=== PATIENT | female | born 1960 | race Caucasian/White ===

== ENCOUNTER 2021-12-05 05:51 | Day surgery (SDC) | payer BC ==
[2021-12-01 10:12] LABS: Absolute Lymphocytes (CBC) 2.3 K/uL (0.7-4.9); Hematocrit 42.6 % (36.0-45.0); Lymphocytes % 39.6 % (15.3-44.8); MPV 7.5 fL (7.6-11.3); RBC Red Blood Cell Count 4.62 M/uL (3.86-4.86)
[2021-12-01 10:23] LABS: Protime INR 0.93
[2021-12-01 10:28] LABS: Potassium 4.1 mmol/L (3.5-5.1)
[2021-12-05] MEDS ORDERED: CEFAZOLIN/NS 1gm 1 GM/50 ML BAG ONE (06:08)
[2021-12-05] MEDS ORDERED: Ringers Lactate 1,000 ML IV ONE ×2 (06:08→06:54)
[2021-12-05] MEDS ORDERED: MIDAZOLAM HCL 2 MG/2 ML INJ ONE ×2 (06:19→06:20)
[2021-12-05] MEDS ORDERED: FENTANYL CITR 100 MCG/2 ML ONE (06:19)
[2021-12-05] MEDS ORDERED: LIDOCAINE 1% MPF 5 ML VIAL ONE (06:19)
[2021-12-05] MEDS ORDERED: dexAMETHasone 10 MG/ML VIAL ONE ×2 (06:19→07:15)
[2021-12-05] MEDS ORDERED: ROPLVACAINE HCL 40 ML ONE (06:20)
[2021-12-05] MEDS ORDERED: EPINEPHRINE/PF 1 MG/ML AMP ONE (06:54)
[2021-12-05] MEDS ORDERED: propofoL 200 MG/20 ML VIAL IV ONE (07:15)
[2021-12-05] MEDS ORDERED: ROCURONIUM 50 MG/5 ML VIAL IV ONE (07:16)
[2021-12-05] MEDS ORDERED: ONDANSETRON 4 MG/2 ML VIAL ONE (07:16)
[2021-12-05] MEDS ORDERED: KETOROLAC 30 MG/ML INJ ONE (07:16)
[2021-12-05] MEDS ORDERED: LIDOCAINE 2% MPF 5 ML VIAL ONE (07:16)
[2021-12-05] MEDS ORDERED: GLYCOPYRROLATE 0.2 MG/ML SYR ONE (09:16)
[2021-12-05] MEDS ORDERED: NEOSTIGMINE 1 MG/ML -5 ML ONE (09:22)
--- NOTE | 2021-12-05 09:25 | P.BOP ---
Preoperative diagnosis: left shoulder roattor cuff tear, impingement syndrome Postoperative diagnosis: same, left shoulder SLAP tear Primary procedure: left shoulder arthroscopic rotator cuff repair Secondary procedure: left shoulder arthroscopic SLAP debridement Other procedure(s): left shoulder arthroscopic subacromial decompression Account Engineer: NONE,NONE Estimated blood loss: 5 cc Specimen: none Findings: see dictation Anesthesia: General Complications: None Implants: 1- 5.5 mm Arthrex corkscrew, 1- 4.75 mm Arthrex swivelock Fluids & blood products: per anesthesia record Transferred to: Recovery Room Condition: Good
--- NOTE | 2021-12-05 09:37 | P.OP ---
Preoperative diagnosis: left shoulder rotator cuff tear, impingement syndrome Postoperative diagnosis: same, left shoulder SLAP tear Primary procedure: left shoulder arthroscopic rotator cuff repair Secondary procedure: left shoulder arthroscopic SLAP debridement Other procedure(s): left shoulder arthroscopic subacromial decompression Anesthesia: general Estimated blood loss: 5 cc Specimen: none Findings: see dictation Operative Technique: Indication For Procedure: Keshia is a 61-year-old female who presented to my clinic with signs, symptoms, and MRI findings consistent with a left shoulder full-thickness rotator cuff tear. I discussed with the patient risks and benefits associated with operative and nonoperative treatment. She expressed understanding and elected to proceed with operative treatment. Description Of Procedure: After informed consent was obtained, the patient was identified in the preoperative holding area. The left upper extremity was marked. The patient then was brought to the PACU where she underwent a left- sided interscalene block performed by Anesthesia. The patient was brought back to the operating room, transferred to the operative table in supine fashion, placed under general endotracheal anesthesia. She was then placed in a beach chair position with his extremities well padded. The right upper extremity was then prepped and draped in usual sterile fashion. A time-out was initiated. The correct patient and procedure were performed and identified. The patient did receive preoperative prophylactic antibiotics. Via the posterior portal position, a spinal needle was introduced in the glenohumeral joint and the shoulder was injected with 30 cc of normal saline to distend the capsule. A stab incision was made posteriorly and a posterior portal was created. Arthroscope was brought in via the posterior portal position and diagnostic arthroscopy was performed. Under direct visualization, an anterior portal and cannula were created. The patient was noted to have a type 1 SLAP tear, which was debrided using the arthroscopic shaver. There were no significant instability of the superior labrum or anterior posterior labrum, which were stable to probe. There was no significant fraying or tenosynovitis of the bicipital tendon both intra-articular and extra-articular. Subscapularis was found to be stable and intact to probe. There were no loose bodies within the axillary pouch. The patient was noted to have a full-thickness tear of the anterior aspect of the supraspinatus. A lateral portal was created and an arthroscopic shaver was then used to debride the anterior aspect of the greater tuberosity. The rotator cuff tear was noted to create a bleeding bony bed. The undersurface of the rotator cuff tear was also debrided using the arthroscopic shaver to remove any unhealthy tissue. The arthroscope was then brought in the subacromial space. A subacromial bursectomy was performed using arthroscopic shaver. The patient was noted to have an anterior full-thickness tear. The rotator cuff tear was reducible to the greater tuberosity. A lateral stab incision was made just lateral to the acromion. A punch was then placed, was then used to place a 5.5 mm double loaded Arthrex corkscrew. Sutures were then passed through the rotator cuff tear in anterior-posterior fashion, tied in a horizontal mattress fashion. The suture lines were then crisscrossed and one lateral Arthrex SwiveLock anchor was placed to increase surface area of the reduction onto the greater tuberosity of the rotator cuff tendon. The remaining suture limbs were then cut. There was some significant fraying of a coracoacromial ligament as well as some undersurface spurring of the acromion and acromioplasty was performed using a radiofrequency ablator and an arthroscopic martinez. Arthroscopic instruments were then removed without complication. Wounds were then irrigated thoroughly with normal saline. Subcutaneous tissue was approximated using a 2-0 Vicryl. Portals were approximated using a 3-0 Monocryl. Sterile dressings were applied. Shoulder immobilizer was placed. The patient was awakened and transferred to PACU in stable condition. Postoperative Plan: The patient will be nonweightbearing in a shoulder immobilizer for 6 weeks. We will follow the medium rotator cuff repair protocol 4 weeks postoperatively. Complications: None Implants: 1- 5.5 mm arthrex corkscrew, 1- 4.75 mm arthrex swivelock Fluids & blood products: per anesthesia record Transferred to: Recovery Room Condition: Good
--- NOTE | 2021-12-05 10:10 | RAD REPORT ---
EXAM DESCRIPTION: RAD - Shoulder 1 View - 12/05/2021 10:01 am CLINICAL HISTORY: S/P RCR COMPARISON: Shoulder Left Wo Cont dated 10/09/2021 FINDINGS/IMPRESSION: Immediate postoperative changes at the left shoulder. No fractures identified. Alignment is normal on this single view.
[2021-12-05] MEDS ORDERED: HYDROCODONE/APAP 7.5/325 MG TAB ONE (11:03)
[2021-12-05 12:52] VITALS: BP 138/55; TEMP 96.4; O2SAT 97
== END 2021-12-05 11:54 | disposition home or self-care (01) ==
LOC: OR 05:51
PROVIDERS: ATTEND Orthopaedic Surgery Sports Medicine
PROC: 0RNK4ZZ Release Left Shoulder Joint, Percutaneous Endoscopic Approach (ICD-10-PCS; 2021-12-05)
PROC: 0RBK4ZZ Excision of Left Shoulder Joint, Percutaneous Endoscopic Approach (ICD-10-PCS; 2021-12-05)
PROC: 0LQ24ZZ Repair Left Shoulder Tendon, Percutaneous Endoscopic Approach (ICD-10-PCS; principal; 2021-12-05 07:30)
DX: M75.102 Unspecified rotator cuff tear or rupture of left shoulder, not specified as traumatic (principal); M25.512 Pain in left shoulder; M75.22 Bicipital tendinitis, left shoulder; M75.42 Impingement syndrome of left shoulder; Z20.822 Contact with and (suspected) exposure to COVID-19
CPT/HCPCS: 85025; 80048; 36415; 85610; 85730; 73020; 29827; 29826; 29822; U0002; J2704; J0171; J2250 ×2; J3010; J1100 ×2; J2795; J2710; J0690; J7120 ×2; J2405

== ENCOUNTER 2022-04-05 00:52 | Inpatient (IN) | payer BC ==
--- OUTSIDE RECORDS SUMMARY | 2022-04-05 00:54 | XMS REPORT | Continuity of Care Document ---
:1960 Author Organization [facility] t Address [address] [place] [address] Care Team Providers Name Role Phone [place] Attending Clinician Unavailable Millender Attending Clinician Unavailable SISSON_C Attending Clinician Unavailable Kendy Attending Clinician [phone] G_Pappas Attending Clinician Unavailable SISSON_C Admitting Clinician Unavailable G_Pappas Admitting Clinician Unavailable Payers Payer Name Policy Type Policy Number Effective Date Expiration Date Alea elise [facility]: LAZARO [id number] 2017 2018 ADVANTAGE (O) 00:00:00 00:00:00 Problems This patient has no known problems. Allergies, Adverse Reactions, Alerts This patient has no known allergies or adverse reactions. Medications Ordered Filled Start Stop Current Ordering Indication Dosage Frequency Signature Comments Components Source Medication Medication Date Date Medication? Clinician (SIG) Name Name Trazodone Trazodone 2018- Yes Bambi 1-2 Co mmon HCl HCl 4-25 Millender tablets as Spir it 00:00: needed for - [facility] [address] bedtime as [facility] Estradiol Estradiol Yes Bambi 1 tablet Common Millender Spirit - [facility] Sleep Aid Sleep Aid Yes Bambi 1 tablet Common Millender at bedtime Spir it as needed - [facility] Vitamin B12 Vitamin B12 Yes Bambi 5 tablets Common Millender Spirit [facility] Melatonin Melatonin Yes Bambi 3 tablets Common Millender at bedtime Spir it as needed - [facility] with food [facility] Emergen-ZZZ Emergen-ZZZ Yes Bambi not Common Millender defined Spirit [facility] Alive Alive Yes Bambi not Common Womens Womens Millender defined Spi rit Gummy Gummy [facility] Co Q-10 Co Q-10 Yes Bambi 1 capsule Com mon Millender with a Spirit meal [facility] Talent 3 Talent 3 Yes Bambi 1 capsule Com mon Millender Spirit [facility] Vitamin C Vitamin C Yes Bambi 1 capsule Common Millender Spirit [facility] Uyen Uyen Yes Bambi (w/Tumeric Comm on Millender 50 mg) 1 Spirit capsule - [facility] Super Super Yes Bambi 1 tablet Common [facility]-Complex [facility] Probiotic Probiotic Yes Bambi (20 Comm on Millender billion Spirit units) 1 - [facility] capsule [facility] Herbal Herbal Yes Bambi (Vitel Common Millender Herbs) 1 [facility] tablet [facility] Magnesium Magnesium Yes Bambi 1 capsule Common Citrate Citrate Millender Spir it - [facility] Vitamin D Vitamin D Yes Bambi (D-3/OTC) Common Millender [address] [facility] Biotin Biotin Yes Bambi 1 capsule [address] n Millender [facility] Procedures This patient has no known procedures. Encounters Start End Encounter Admission Attending Care Care Encounter Source Date/Time Date/Time Type Type Clinicians Facility Department ID 2022-01-01 Outpatient Renetta [facility] [id number] Common 14:04:[address] [facility] 2021-12-17 Outpatient Renetta [facility] [id number] Common 14:31:16 Leslee [facility] 2021-12-17 Outpatient Renetta [facility] [id number] Common 14:21:[address] [facility] 2021-12-17 Outpatient Renetta [facility] [id number] Common 14:18:[address] [facility] 2021-12-17 Outpatient Renetta [facility] [id number] Common 14:05:[id number] [facility] 2021-12-17 Outpatient [place], STLMLC STL[facility] [id number] Common 13:17:[address] [facility] 2021-12-17 Outpatient [place], STLMLC STLMLC [id number] Common 13:01:[address] [facility] 2021-12-17 Outpatient [place], STLMLC STLMLC [id number] Common 12:59:[address] [facility] 2021-12-17 Outpatient [place], STLMLC STLMLC [id number] Common 12:50:[address] [facility] 2021-12-17 Outpatient [place], STLMLC STLMLC [id number] Common 12:07:[address] [facility] 2021-12-17 Outpatient STLMLC STL[facility]C [id number] Common 12:03:[id number] [facility] 2021-12-17 Outpatient Millender, STLMLC STLMLC [id number] Common 11:13:[id number] [facility] 2022-03-31 2022-03-31 Outpatient SISSON_C [facility] [id number] [place] 03:35:00 03:35:00 [id number] 2022-03-31 2022-03-31 Outpatient Kendy [facility] [id number] 00:00:00 00:00:00 Jackie [id number] 2022-03-25 2022-03-25 Outpatient S[facility]SON[facility]C [facility] [id number] [place] 12:53:00 12:53:00 [id number] [facility] 2022-03-24 2022-03-24 ambulatory [facility]MLC ST[facility] [id number] Common 00:00:00 00:00:00 [facility] 2022-03-05 2022-03-05 ambulatory [facility]LMLC ST[facility] [id number] Common 00:00:00 00:00:00 [facility] 2022-03-05 2022-03-05 ambulatory [facility]LMLC ST[facility]C [id number] Common 00:00:00 00:00:00 [facility] 2022-02-16 2022-02-16 ambulatory STLMLC ST[facility] [id number] Common 00:00:00 00:00:00 [facility] 2022-01-22 2022-01-22 ambulatory [facility]MLC ST[facility] [id number] Common 00:00:00 00:00:00 [facility] 2021-12-30 2021-12-30 ambulatory [facility]LMLC ST[facility] [id number] Common 00:00:00 00:00:00 [facility] 2021-12-25 2021-12-25 ambulatory STLMLC STLMLC [id number] Common 00:00:00 00:00:00 [facility] 2021-12-09 2021-12-09 ambulatory [facility]LMLC ST[facility]C [id number] Common 00:00:00 00:00:00 [facility] 2021-12-02 2021-12-02 ambulatory [facility]LMLC ST[facility]C [id number] Common 00:00:00 00:00:00 [facility] 2021-11-28 2021-11-28 ambulatory STLMLC STLMLC [id number] Common 00:00:00 00:00:00 [facility] 2021-11-26 2021-11-26 ambulatory [facility]LMLC STLMLC [id number] Common 00:00:00 00:00:00 [facility] 2021-11-25 2021-11-25 ambulatory STLMLC STLMLC [id number] Common 00:00:00 00:00:00 [facility] 2021-10-22 2021-10-22 ambulatory STLMLC STLMLC [id number] Common 00:00:00 00:00:00 [facility] 2021-10-21 2021-10-21 ambulatory STLMLC STLMLC [id number] Common 00:00:00 00:00:00 [facility] 2021-10-21 2021-10-21 ambulatory STLMLC STLMLC [id number] Common 00:00:00 00:00:00 [facility] 2021-10-15 2021-10-15 ambulatory STLMLC STLMLC [id number] Common 00:00:00 00:00:00 [facility] 2021-10-15 2021-10-15 ambulatory STLMLC STL[facility]C [id number] Common 00:00:00 00:00:00 [facility] 2021-10-13 2021-10-13 ambulatory STLMLC STLMLC [id number] Common 00:00:00 00:00:00 [facility] 2021-10-08 2021-10-08 ambulatory STLMLC STLMLC [id number] Common 00:00:00 00:00:00 [facility] 2021-10-02 2021-10-02 ambulatory STLMLC STLMLC [id number] Common 00:00:00 00:00:00 [facility] 2021-09-25 2021-09-25 ambulatory STLMLC STLMLC [id number] Common 00:00:00 00:00:00 [facility] 2021-09-25 2021-09-25 ambulatory [facility]LMLC STL[facility]C [id number] Common 00:00:00 00:00:00 [facility] 2021-09-24 2021-09-24 ambulatory STLMLC STLMLC [id number] Common 00:00:00 00:00:00 [facility] 2021-08-07 2021-08-07 Outpatient [facility]C ST[facility]C [id number] Common 00:00:00 00:00:00 [facility] 2021-08-05 2021-08-05 Outpatient [facility] ST[facility] [id number] Common 00:00:00 00:00:00 [facility] 2021-07-18 2021-07-18 Outpatient [facility] ST[facility] [id number] Common 00:00:00 00:00:00 [facility] 2021-05-13 2021-05-13 Outpatient [facility] ST[facility] [id number] Common 00:00:00 00:00:00 [facility] 2021-05-08 2021-05-08 Outpatient [facility]C ST[facility] [id number] Common 00:00:00 00:00:00 [facility] 2021-03-31 2021-03-31 Outpatient [facility]C ST[facility] [id number] Common 00:00:00 00:00:00 [facility] 2021-03-13 2021-03-13 Outpatient [facility]C ST[facility]C [id number] Common 00:00:00 00:00:00 [facility] 2021-03-03 2021-03-03 Outpatient [facility] [id number] Common 00:00:00 00:00:00 [facility] 2021-02-28 2021-02-28 Outpatient [facility]C ST[facility]C [id number] Common 00:00:00 00:00:00 [facility] 2021-02-27 2021-02-27 Outpatient ST[facility]C ST[facility]C [id number] Common 00:00:00 00:00:00 [facility] 2021-02-20 2021-02-20 Outpatient STLMLC ST[facility]C [id number] Common 00:00:00 00:00:00 [facility] 2021-02-13 2021-02-13 Outpatient [facility]C ST[facility]C [id number] Common 00:00:00 00:00:00 [facility] 2021-01-02 2021-01-02 Outpatient [facility]C ST[facility]C [id number] Common 00:00:00 00:00:00 [facility] 2021-01-01 2021-01-01 Outpatient [facility]C ST[facility]C [id number] Common 00:00:00 00:00:00 [facility] 2020-12-19 2020-12-19 Outpatient ST[facility]MLC ST[facility]C [id number] Common 00:00:00 00:00:00 [facility] 2020-11-28 2020-11-28 Outpatient ST[facility]MLC STLMLC [id number] Common 00:00:00 00:00:00 [facility] 2020-10-28 2020-10-28 Outpatient [facility]C ST[facility]C [id number] Common 00:00:00 00:00:00 [facility] 2020-10-15 2020-10-15 Outpatient [facility]C ST[facility]C [id number] Common 00:00:00 00:00:00 [facility] 2020-10-09 2020-10-09 Outpatient G_Pappas [facility] [id number] [place] 02:44:00 02:44:00 [id number] 2020-08-20 2020-08-20 Outpatient STLMLC STLMLC [id number] Common 00:00:00 00:00:00 [facility] 2020-08-15 2020-08-15 Outpatient ST[facility]MLC ST[facility]C [id number] Common 00:00:00 00:00:00 [facility] 2020-03-08 2020-03-08 [facility] [id number] Common 08:00:00 08:00:00 [facility] 2019-09-07 2019-09-07 [facility] [id number] Common 08:00:00 08:00:00 [facility] 2019-03-12 2019-03-12 [facility] [id number] Common 13:07:00 13:07:00 [facility] 2018-07-11 2018-07-11 [facility] [id number] Common 08:25:00 08:25:00 [facility] Results This patient has no known results.
[2022-04-05] MEDS ORDERED: MORPHINE 4 MG/ML SYR ONE ×2 (03:09→05:20)
[2022-04-05] MEDS ORDERED: ONDANSETRON 4 MG/2 ML VIAL ONE ×3 (03:49→08:50)
[2022-04-05 03:50] LABS: Absolute Lymphocytes (CBC) 1.3 K/uL (0.7-4.9)
[2022-04-05 03:56] LABS: Hematocrit 42.5 % (36.0-45.0); MPV 7.3 fL (7.6-11.3); RBC Red Blood Cell Count 4.81 M/uL (3.86-4.86)
[2022-04-05 04:07] LABS: Albumin 3.4 g/dL (3.4-5.0); Bilirubin Total 0.7 mg/dL (0.2-1.0); Potassium 3.7 mmol/L (3.5-5.1); Protein, Total 7.6 g/dL (6.4-8.2)
[2022-04-05 04:27] LABS: Blood Morphology Comment NOT SEEN (NOT SEEN); Platelet Estimate ADEQ
[2022-04-05] MEDS ORDERED: PIPERACIL/TAZO 3.375 GM VIAL IV ONE (04:45)
[2022-04-05] MEDS ORDERED: NA CHLORIDE 0.9% 100 ML IV ONE (04:45)
[2022-04-05 05:05] LABS: Protime INR 1.52
--- NOTE | 2022-04-05 06:38 | ER ---
Nurse's Notes [facility] Name: Keshia Mendoza Age: 61 yrs Sex: Female : 1960 Arrival Date: 04/05/2022 Time: 00:54 Bed 5 Private MD: Diagnosis: Small bowel obstruction;Perforated abdominal viscus;pneumoperitoneum Presentation: 04/05 01:21 Chief complaint: Patient states: Been having abdominal pain for the past 24 hours. tw5 Spouse and/or significant other states: "We just thought it was gas so I have been giving her gas x all day.". Coronavirus screen: Vaccine status: Patient reports being unvaccinated. Ebola Screen: Patient negative for fever greater than or equal to 101.5 degrees Fahrenheit, and additional compatible Ebola Virus Disease symptoms Patient denies exposure to infectious person. Patient denies travel to an Ebola-affected area in the 21 days before illness onset. Initial Sepsis Screen: Does the patient meet any 2 criteria? HR > 90 bpm. Does the patient have a suspected source of infection? Yes: Acute abdominal pain. Risk Assessment: Do you want to hurt yourself or someone else? Patient reports no desire to harm self or others. Onset of symptoms was April 03, 2022 at 22:00. 01:21 Method Of Arrival: Wheelchair tw5 01:21 Acuity: LORENZA 3 tw5 Triage Assessment: 01:26 General: Appears uncomfortable, Behavior is calm, cooperative, appropriate for age. tw5 Pain: Complains of pain in abdomen Pain currently is 10 out of 10 on a pain scale. GI: Reports nausea, vomiting. Historical: - Allergies: 07:37 No Known Allergies; jl7 - Home Meds: 07:37 None [Active]; jl7 - PMHx: 07:37 None; jl7 - PSHx: 01:26 Appendectomy; rotator cuff surgery- left and right; Total abdominal hysterectomy; tw5 - Immunization history:: Flu vaccine is not up to date. - Social history:: Smoking status: Patient/guardian denies using tobacco, the patient reports quitting approximately 3 years ago. Screenin:27 Abuse screen: Denies threats or abuse. Nutritional screening: No deficits noted. ll3 Tuberculosis screening: No symptoms or risk factors identified. Fall Risk No fall in past 12 months (0 pts). No secondary diagnosis (0 pts). IV access (20 points). Ambulatory Aid- None/Bed Rest/Nurse Assist (0 pts). Gait- Normal/Bed Rest/Wheelchair (0 pts) Mental Status- Oriented to own ability (0 pts). Total Islas Fall Scale indicates No Risk (0-24 pts). Assessment: 04:02 Reassessment: No changes from previously documented assessment. Patient and/or family ll3 updated on plan of care and expected duration. Pain level reassessed. Patient is alert, oriented x 3, equal unlabored respirations, skin warm/dry/pink. 05:27 Reassessment: No changes from previously documented assessment. Patient and/or family ll3 updated on plan of care and expected duration. Pain level reassessed. Patient is alert, oriented x 3, equal unlabored respirations, skin warm/dry/pink. 07:15 Reassessment: Patient appears in no apparent distress at this time. No changes from jl7 previously documented assessment. Patient and/or family updated on plan of care and expected duration. Pain level reassessed. Patient is alert, oriented x 3, equal unlabored respirations, skin warm/dry/pink. Awaiting surgery. Vital Signs: 01:21 BP 117 / 81; Pulse 137; Resp 18; Temp 98.1; Pulse Ox 97% on R/A; Weight 68.04 kg; tw5 Height 5 ft. 5 in. (165.10 cm); Pain 10/10; 04:02 BP 147 / 100; Pulse 126; Resp 18; Pulse Ox 95% on R/A; ll3 05:26 BP 130 / 78; Pulse 119; Resp 18; Pulse Ox 96% on R/A; ll3 06:55 BP 126 / 93; Pulse 122; Resp 18; Pulse Ox 98% on R/A; ll3 07:38 BP 115 / 77; Pulse 120; Resp 15; Pulse Ox 98% ; jl7 01:21 Body Mass Index 24.96 (68.04 kg, 165.10 cm) tw5 ED Course: 00:54 Patient arrived in ED. bp1 01:05 Jack Quintero DO is Attending Physician. ms3 01:23 Triage completed. tw5 01:26 Arm band placed on right wrist. tw5 03:41 Duke Dixon, RN is Primary Nurse. jb4 04:00 Notified ED physician of a critical lab result(s). WBC 26.2. ll3 04:00 Inserted saline lock: 22 gauge in left forearm, using aseptic technique. Blood ll3 collected. 05:03 CT Abd/Pelvis - IV Contrast Only In Process Unspecified. EDMS 05:27 Patient has correct armband on for positive identification. Placed in gown. Bed in low ll3 position. Call light in reach. Side rails up X 1. 06:36 Francisco Hsieh MD is Hospitalizing Provider. ms3 07:37 No provider procedures requiring assistance completed. Patient admitted, IV remains in jl7 place. intact, No redness/swelling at site. Administered Medications: 03:40 Drug: morphine 4 mg Route: IVP; Site: left forearm; ll3 04:27 Follow up: Response: No adverse reaction ll3 03:48 Drug: Zofran (Ondansetron) 4 mg Route: IVP; Site: left forearm; ll3 04:27 Follow up: Response: No adverse reaction ll3 05:15 Drug: Zosyn (piperacillin-tazobactam) 3.375 grams Route: IVPB; Infused Over: 60 mins; ll3 Site: left forearm; 06:40 Follow up: Response: No adverse reaction; IV Status: Completed infusion; IV Intake: ll3 100ml 05:20 Drug: Ondansetron 4 mg Route: IVP; Site: left forearm; ll3 06:41 Follow up: Response: No adverse reaction ll3 05:25 Drug: morphine 4 mg Route: IVP; Site: left forearm; ll3 06:41 Follow up: Response: No adverse reaction ll3 07:36 Drug: Lactated Ringers Solution 1000 ml Route: IV; Rate: 150 ml/hr; Site: left jl7 antecubital; 07:40 Follow up: IV Status: Infusion continued upon admission jl7 Medication: 07:37 VIS not applicable for this client. jl7 Intake: 06:40 IV: 100ml; Total: 100ml. ll3 Outcome: 06:37 Decision to Hospitalize by Provider. ms3 07:41 Admitted to OR accompanied by nurse, family with patient, via stretcher. jl7 07:41 Condition: stable 07:41 Discharge instructions given to patient, family, Instructed on the need for admit, Demonstrated understanding of instructions. 07:47 Patient left the ED. jl7 Signatures: Dispatcher [employer] EDDuke Navarro, RN RN jb4 Davida Mcintyre RN RN jl7 Jack Quintero DO DO ms3 Nichole Peck Tiffany tw5 Allen Mathis RN RN ll3
--- NOTE | 2022-04-05 06:38 | EDPHYS ---
Physician Documentation [facility] Name: Keshia Menodza Age: 61 yrs Sex: Female : 1960 Arrival Date: 04/05/2022 Time: 00:54 Bed 5 Private MD: ED Physician Jack Quintero HPI: 04/05 01:33 This 61 yrs old Female presents to ER via Wheelchair with complaints of Abdominal Pain, ms3 Nausea/Vomiting. 01:33 The patient presents to the emergency department with nausea, that is moderate, ms3 vomiting, abdominal pain, of the abdomen, described as crampy, Pressure. Onset: The symptoms/episode began/occurred acutely, 2 day(s) ago. Possible causes: unknown. The symptoms are aggravated by Coughing, sneezing The symptoms are alleviated by nothing. Associated signs and symptoms: Pertinent positives: abdominal pain, nausea, vomiting. Severity of symptoms: At their worst the symptoms were severe in the emergency department the symptoms are unchanged Pain is currently a 10 / 10. Historical: - Allergies: 07:37 No Known Allergies; jl7 - Home Meds: 07:37 None [Active]; jl7 - PMHx: 07:37 None; jl7 - PSHx: 01:26 Appendectomy; rotator cuff surgery- left and right; Total abdominal hysterectomy; tw5 - Immunization history:: Flu vaccine is not up to date. - Social history:: Smoking status: Patient/guardian denies using tobacco, the patient reports quitting approximately 3 years ago. ROS: 01:33 Constitutional: Negative for fever, and chills. Eyes: Negative for injury, pain, ms3 redness, and discharge, Neck: Negative for injury, pain, and swelling, Cardiovascular: Negative for chest pain, and palpitations. Respiratory: Negative for shortness of breath, cough, wheezing, and pleuritic chest pain, MS/Extremity: Negative for injury and deformity, Skin: Negative for injury, rash, and discoloration. 01:33 Abdomen/GI: Positive for abdominal pain, nausea and vomiting. 01:33 All other systems are negative. Exam: 01:33 Constitutional: This is a well developed, well nourished patient who is awake, alert, ms3 and in no acute distress. Head/Face: Normocephalic, atraumatic. Neck: Trachea midline, no cervical lymphadenopathy. Supple, full range of motion without nuchal rigidity, or vertebral point tenderness. No Meningismus. Chest/axilla: Normal chest wall appearance and motion. Nontender with no deformity. Cardiovascular: Regular rate and rhythm with a normal S1 and S2. No gallops, murmurs, or rubs. Normal PMI, no JVD. No pulse deficits. Skin: Warm, dry with normal turgor. Normal color with no rashes, no lesions, and no evidence of cellulitis. 01:33 Abdomen/GI: Inspection: abdomen appears normal, Bowel sounds: diminished, in all quadrants, Palpation: moderate abdominal tenderness, in all quadrants. 04:35 ECG was reviewed by the Attending Physician. ms3 Vital Signs: 01:21 BP 117 / 81; Pulse 137; Resp 18; Temp 98.1; Pulse Ox 97% on R/A; Weight 68.04 kg; tw5 Height 5 ft. 5 in. (165.10 cm); Pain 10/10; 04:02 BP 147 / 100; Pulse 126; Resp 18; Pulse Ox 95% on R/A; ll3 05:26 BP 130 / 78; Pulse 119; Resp 18; Pulse Ox 96% on R/A; ll3 06:55 BP 126 / 93; Pulse 122; Resp 18; Pulse Ox 98% on R/A; ll3 07:38 BP 115 / 77; Pulse 120; Resp 15; Pulse Ox 98% ; jl7 01:21 Body Mass Index 24.96 (68.04 kg, 165.10 cm) tw5 MDM: 01:33 Differential diagnosis: Nonspecific abd pain, gastritis, appendicitis, diverticulitis, ms3 viral gastroenteritis. 01:38 Patient medically screened. ms3 06:36 ED course: Discussed case with Dr Davila. He would like the OR team ready in 1 hour ms3 for laparotomy. [facility] shipping supervisor[facility] Discussed case with Dr Hsieh and he accepts patient. All question answered. Discussed OR plan with patient and her and they understand/ agree with plan.. 06:36 Data reviewed: vital signs, nurses notes, lab test result(s), radiologic studies, CT ms3 scan. Counseling: I had a detailed discussion with the patient and/or guardian regarding: the historical points, exam findings, and any diagnostic results supporting the discharge/admit diagnosis, lab results, radiology results, the need for further work-up and treatment in the hospital. 04/05 02:57 Order name: CBC with Diff; Complete Time: 06:29 ms3 04/05 02:57 Order name: CMP; Complete Time: 06:29 ms3 04/05 02:57 Order name: Lipase; Complete Time: 06:29 ms3 04/05 04:02 Order name: Manual Differential; Complete Time: 06:29 EDMS 04/05 04:14 Order name: Blood Culture Adult (2) ms3 04/05 04:14 Order name: Lactate; Complete Time: 06:29 ms3 04/05 02:57 Order name: CT Abd/Pelvis - IV Contrast Only ms3 04/05 04:14 Order name: Protime (+inr); Complete Time: 06:29 ms3 04/05 04:14 Order name: Ptt, Activated; Complete Time: 06:29 ms3 04/05 04:14 Order name: Urine Microscopic Only 3 04/05 06:55 Order name: COVID-19 SARS RT PCR (Document "Date of Onset" if Symptomatic) ll3 04/05 02:57 Order name: IV Saline Lock; Complete Time: 03:49 ms3 04/05 02:57 Order name: Labs collected and sent; Complete Time: 03:49 ms3 04/05 04:14 Order name: Accucheck; Complete Time: 04:43 ms3 04/05 04:14 Order name: Cardiac monitoring; Complete Time: 04:42 ms3 04/05 04:14 Order name: EKG - Nurse/Tech; Complete Time: 04:42 ms3 04/05 04:14 Order name: IV Saline Lock - Large Bore; Complete Time: 04:27 ms3 04/05 04:14 Order name: O2 Per Protocol; Complete Time: 04:27 ms3 04/05 04:14 Order name: O2 Sat Monitoring; Complete Time: 04:27 ms3 EC:35 Rate is 125 beats/min. Rhythm is regular. QRS Babbitt is Normal. OH interval is normal. ms3 QRS interval is normal. Clinical impression: Sinus tachycardia. Interpreted by me. Administered Medications: 03:40 Drug: morphine 4 mg Route: IVP; Site: left forearm; ll3 04:27 Follow up: Response: No adverse reaction ll3 03:48 Drug: Zofran (Ondansetron) 4 mg Route: IVP; Site: left forearm; ll3 04:27 Follow up: Response: No adverse reaction ll3 05:15 Drug: Zosyn (piperacillin-tazobactam) 3.375 grams Route: IVPB; Infused Over: 60 mins; ll3 Site: left forearm; 06:40 Follow up: Response: No adverse reaction; IV Status: Completed infusion; IV Intake: ll3 100ml 05:20 Drug: Ondansetron 4 mg Route: IVP; Site: left forearm; ll3 06:41 Follow up: Response: No adverse reaction ll3 05:25 Drug: morphine 4 mg Route: IVP; Site: left forearm; ll3 06:41 Follow up: Response: No adverse reaction ll3 07:36 Drug: Lactated Ringers Solution 1000 ml Route: IV; Rate: 150 ml/hr; Site: left jl7 antecubital; 07:40 Follow up: IV Status: Infusion continued upon admission jl7 Disposition Summary: 04/05/22 06:37 Hospitalization Ordered Hospitalization Status: Inpatient Admission ms3 Provider: Francisco Hsieh ms3 Location: Telemetry/[facility] (Inpatient) ms3 Condition: Stable ms3 Problem: new ms3 Symptoms: are unchanged ms3 Bed/Room Type: Standard ms3 Room Assignment: ms3 Diagnosis - Small bowel obstruction ms3 - Perforated abdominal viscus ms3 - pneumoperitoneum ms3 Forms: - Medication Reconciliation Form ms3 - SBAR form ms3 Signatures: Dispatcher [employer] EDYuri Rivera, SHUKRI-Peggy EASLEYP-Cla1 Duke Dixon, RN RN jb4 Davida Mcintyre RN RN jl7 Jack Quintero DO DO ms3 Rosa Noriega tw5 Allen Mathis RN RN ll3
[2022-04-05] MEDS ORDERED: Ringers Lactate 1,000 ML IV ONE ×5 (07:02→10:20)
[2022-04-05] MEDS ORDERED: LIDOCAINE 1% MPF 5 ML VIAL ONE (07:37)
[2022-04-05] MEDS ORDERED: propofoL 200 MG/20 ML VIAL IV ONE (07:37)
[2022-04-05] MEDS ORDERED: ROCURONIUM 50 MG/5 ML VIAL IV ONE (07:38)
[2022-04-05] MEDS ORDERED: FENTANYL CITR 100 MCG/2 ML ONE ×2 (07:38→09:05)
[2022-04-05] MEDS ORDERED: SUCCINYLCHOLINE 20 MG/ML (10 ML) IV ONE (07:50)
[2022-04-05] MEDS ORDERED: ACETAMINOPHEN 500 MG TAB PO PRN (07:54)
[2022-04-05] MEDS ORDERED: ONDANSETRON 4 MG/2 ML VIAL IV PRN (07:54)
--- NOTE | 2022-04-05 07:59 | P.HP ---
Certification for Inpatient Patient admitted to: Inpatient With expected LOS: >2 Midnights Practitioner: I am a practitioner with admitting privileges, knowledge of patient current condition, hospital course, and medical plan of care. Services: Services provided to patient in accordance with Admission requirements found in Title 42 Section 412.3 of the Code of Federal Regulations Patient History Date of Service: 04/05/22 Reason for admission: Rated intra-abdominal viscus, sepsis, intra-abdominal catastrophe. History of Present Illness: 61-year-old female patient was evaluated in the emergency room for episode of abdominal pain. She complains of pain for the past 2-day duration with associated nausea and vomiting. Pain is aggravated with coughing and movement and in the ED she had a CT abdomen pelvis done that revealed free air in the abdomen depicting perforated viscus. She was taken urgently to the OR for surgical intervention she was found to have a perforated sigmoid diverticulitis. She had operative intervention and colostomy formation. She is presently in the ICU for postoperative care. Allergies No Known Allergies Allergy (Verified 12/01/21 09:31) Home Medications: Ascorbic Acid [Vitamin C] 2,000 mg PO DAILY 12/01/21 Ascorbic Acid/Elderberry Fruit [Elderberry-Vit C 50-100 mg Chw] 1 each PO DAILY 12/01/21 Biotin 10,000 mcg PO DAILY 12/01/21 Cholecalciferol (Vitamin D3) [Vitamin D3] 3,000 unit PO DAILY 12/01/21 L.acidoph,Paracasei, B.lactis [Probiotic] 1 each PO DAILY 12/01/21 Lifitegrast [Xiidra] 1 each OP DAILY 12/01/21 Magnesium Oxide [Magnesium] 250 mg PO DAILY 12/01/21 Mastic-3S/Dha/Epa/Fish Oil/D3 [De3 Dry Eye Mastic Benefits Cap] 1 each PO BID 12/01/21 Trazodone HCl 100 mg PO BEDTIME 12/01/21 Turmeric Root/Uyen Root Ext [Turmeric Curcumin-Uyen Gummy] 1 each PO DAILY 12/01/21 Zinc 50 mg PO DAILY 12/01/21 Review of Systems General: Weakness, Malaise Eyes: Unremarkable ENT: Unremarkable Respiratory: Unremarkable Cardiovascular: Unremarkable Gastrointestinal: Nausea, Vomiting, Abdominal Pain Genitourinary: Unremarkable Musculoskeletal: Unremarkable Integumentary: Unremarkable Neurological: Unremarkable Physical Examination - Vital Signs Temperature: 98.1 F Blood Pressure: 130/78 Pulse: 119 Respirations: 18 - Physical Exam General: Alert HEENT: Atraumatic, Normocephalic Neck: Supple Respiratory: Normal air movement Cardiovascular: Regular rate/rhythm, Normal S1 S2 Gastrointestinal: Other (post op changes noted.), Distended Musculoskeletal: No swelling Neurological: Normal speech - Studies Laboratory Data (last 24 hrs) 04/05/22 04:26: PT 16.9 H, INR 1.52, APTT 37.5 H 04/05/22 03:42: Sodium 131 L, Potassium 3.7, BUN 13, Creatinine 0.80, Glucose 117 H, Total Bilirubin 0.7, AST 29, ALT 72, Alkaline Phosphatase 122 H, Lipase 85 04/05/22 03:42: WBC 26.2 H*, Hgb 14.7, Hct 42.5, Plt Count 266 Microbiology Data (last 24 hrs): 04/05/22 04:32 Blood - Blood Anaerobic Blood Culture - Final Assessment and Plan - Plan Perforated sigmoid diverticulitis: Patient had operative intervention urgently after she was discovered to have intra-abdominal catastrophe. She is presently on clear liquid diet as per surgeon recommendation. Will continue colostomy care as per ostomy wound nurse. Will continue pain control with as needed morphine. Follow closely Empiric antibiotic with Zosyn to be continued. Prophylaxis: Lovenox and SCDs for DVT prophylaxis CODE STATUS: Full code Disposition: For possible discharge in the next 48-72. - Advance Directives Does patient have a Living Will: No Does patient have a Durable POA for Healthcare: No
[2022-04-05] MEDS ORDERED: D5.45NS W/KCL 20MEQ 1,000 ML IV SCH (08:00)
[2022-04-05 08:12] LABS: Urine Appearance Clear (Clear); Urine Bilirubin Negative (Negative); Urine Blood Trace-intact (Negative); Urine Color Yellow (Yellow); Urine Glucose Negative (Negative); Urine Protein Negative (Negative); Urine Urobilinogen 0.2 mg/dL (0.2-1.0)
[2022-04-05 08:13] LABS: Urine Microscopic Reflex ORDER UMIC; Urine RBC <5 /HPF (NONE SEEN)
[2022-04-05 08:14] LABS: Urine Bacteria <20 /HPF (<20)
[2022-04-05] MEDS ORDERED: dexAMETHasone 10 MG/ML VIAL ONE (08:49)
[2022-04-05] MEDS ORDERED: KETOROLAC 30 MG/ML INJ ONE (08:50)
[2022-04-05] MEDS: ENOXAPARIN 40 MG/0.4 ML SQ SCH (09:00)
[2022-04-05] MEDS ORDERED: LABETALOL HCL 100 MG/20 ML ONE (09:14)
[2022-04-05] MEDS ORDERED: GLYCOPYRROLATE 0.2 MG/ML SYR ONE (09:35)
[2022-04-05] MEDS ORDERED: SODIUM CHLORIDE 0.9% 10ML INJ IV PRN (10:02)
[2022-04-05] MEDS: D5.45NS W/KCL 20MEQ 1,000 ML IV SCH ×3 (10:07→21:59)
--- NOTE | 2022-04-05 10:18 | P.BOP ---
Preoperative diagnosis: Acute abd pain, peritonitis, pneumoperitoneum, perforated viscus, SBO Postoperative diagnosis: same, perforated sigmoid diverticulitis Primary procedure: 1. Emergent exploratory laparotomy, 2.sigmoid resection, Secondary procedure: 3. colostomy creation Historic Preservationist: Mamta Pierre (Sarahi) Estimated blood loss: <50cc Specimen: sigmoid Findings: perforated sigmoid diverticulitis Anesthesia: General Complications: None Drain(s): Nasogastric, Urinary catheter, SOWMYA drain Transferred to: Recovery Room Condition: Good
--- NOTE | 2022-04-05 12:17 | CON ---
Date of Consultation: 04/05/2022 Diagnosis: Pneumoperitoneum, peritonitis. History Of Present Illness: This is the case of a 61-year-old patient, that is dark 2 days ago, Fri ay night, complaining of stomach indigestion. During the Wednesday, the patient was taking anti-gas m edications, thinking that it was the problem, but this morning she could not take it anymore and she shows in the ER and found to have pneumoperitoneum. She stated that Wednesday she ate some steak with h er and he ate the same food and he is doing good. There is a history of colonoscopy less yin n 10 years ago, which she claimed was negative. There is no dysuria, hematuria, hematochezia, melena . There is no recent traveling out of the country. There is no family member sick at home and there is no previous episode of this. The patient stated nausea and vomiting with it. Review of Systems: See H and P. Ten points otherwise unremarkable. Allergies: NONE. Medications: None. Medical History: None. Past Surgical History: Surgeries include appendectomy, rotator cuff surgery left and right, and tota l hysterectomy. Social History: She does not smoke. She does not drink alcohol. Family History: Thyroid cancer. Physical Examination: General: The patient is awake, alert. HEENT: Pupils are equal and reactive. Anicteric. Neck: Supple. Chest: Clear. Abdomen: Distended, guarding, rebound, rigid. Peritonitis present. Rectal: Deferred. Extremities: Good capillary refill. Laboratory Data: WBC count of 26 with hemoglobin of 14.7 and platelets of 266. INR of 1.5. Potassi um 3.7, total bilirubin of 0.7, creatinine is 0.8. CAT scan of the abdomen and pelvis read as a pneu moperitoneum with small bowel obstruction. Assessment And Plan: This is the case of a 61-year-old female with bowel obstruction, pneumoperitone um, perforated viscus, peritonitis, leukocytosis. 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 She also unders tands this may not relieve any symptoms. She might need more than one surgical intervention. They u nderstood. Consent was signed. OR emergently called. QUEENIE/MICH Voice ID: [id number] Report ID: [id number]
--- NOTE | 2022-04-05 13:07 | RAD REPORT ---
EXAM DESCRIPTION: RAD - Abdomen 1 View (KUB) - 04/05/2022 1:01 pm CLINICAL HISTORY: Device placement nasogastric tube placement FINDINGS: Nasogastric tube is coiled within the gastric fundus. The tip lies near the junction of t he gastric fundus and body
[2022-04-05] MEDS: HYDROMORPHONE HCL 1 MG/ML INJ ONE ×2 (13:10→13:18)
[2022-04-05 14:43] VITALS: BMI 28.5
[2022-04-05] MEDS ORDERED: PHENOL 1.4% ORAL SPRAY 180ML MM PRN (16:50)
[2022-04-05] MEDS: PIPER TAZO 3.375 GM in NA CHLORIDE 0.9% 100 ML IV SCH (17:03)
[2022-04-05] MEDS: MORPHINE 2 MG/ML SYR IV PRN (17:59)
[2022-04-05] MEDS: HYDROMORPHONE HCL 1 MG/ML INJ IV PRN ×2 (19:20→21:59)
--- NOTE | 2022-04-05 22:28 | OP ---
Date of Procedure: 04/05/2022 Surgeon: Ricco Davila MD Clerk Secretary: GALE Nunez. Preoperative Diagnoses: Acute abdominal pain, peritonitis, pneumoperitoneum, perforated viscus, smal l bowel obstruction. Postoperative Diagnoses: Acute abdominal pain, peritonitis, pneumoperitoneum, perforated viscus, sma ll bowel obstruction plus perforated sigmoid diverticulitis. Procedures: 1.Emergent exploratory laparotomy. 2.Sigmoid resection. 3.Colostomy creation. Estimated Blood Loss: Less than 50 cc. Specimen: Sigmoid colon. Findings: Perforated sigmoid diverticulitis with fibrin present. The small bowel was trying to wall off the perforation of the sigmoid colon, but once released, we noted the small bowel to be viable, proximal and distal variation in size, disappeared. Anesthesia: General plus local. Drains: NG tube, urinary catheter, SOWMYA drain, and wet-to-dry on a midline incision. Complications: None. Indication: This is the case of a 61-year-old patient, comes emergently today with peritonitis. The patient was diagnosed with small bowel obstruction, pneumoperitoneum of unknown etiology. Benefits, alternatives, and risks of emergent laparotomy, possible resection, possible ostomy were fully expla ined, which include, but not limited to infection, bleeding, damage to adjacent structures, anesthesi a complication, choledocholithiasis, ileus, abscess, leakage, MS, and even . She also understan ds this may not relieve the symptoms, she may need more than one surgical intervention. She understo od and signed the consent. The patient understands also we may create an ostomy depends on the findi ngs and may or may not be reverse, although she has to follow some recommendations, trying to attempt reversal in the future if we get to do the ostomy. Procedure In Detail: The OR was emergently called. The patient was brought to the operating room an d placed in the supine position. Anesthesia was done without complication. Abdominal area was prepp ed and draped in a sterile fashion. A midline incision was made with a sharp knife under direct visu alization. Fascia was opened. Immediately, we noticed the patient to have a small bowel trying to w all off the sigmoid colon. We have an area of the small bowel a kink in that area, causing a proxima l distention and distal collapse, but once we removed that small bowel from that area, we noticed the small bowel looked okay, regained the entire shape with no obstruction after it was run from the lig ament of Treitz to the terminal ileum, but unfortunately we noticed that the patient had diverticulit is with a perforation in that area, fibrin present and contamination. We, contained the perforation, irrigated the area profusely. The stomach looked intact with an NG tube in place. The rest of smal l bowel once again was run with no enterotomies. The liver with no extraparenchymal masses. The are a of the lower pelvis with no mass palpated. At that moment, we proceeded to open the white line of Toldt. We obtained proximal and distal control over the area of the perforation. We mobilized the s igmoid colon, making sure the ureters were protected at all times. We transected with a TA 55 distal to the perforation, marked the loop left behind of the bowel to help us in the anastomosis in the fu ture. We obtained proximal control and transected also with a IGNACIO 55. Once again, the ureters were protected at all times as we were just dissecting the mesentery and transected with the help of LigRichie dueñas. Once we removed the segment of sigmoid colon and we mobilized the descending colon, we proceede d then to create a window on the abdomen where the ostomy will be coming through. We irrigated the a bdomen profusely. SOWMYA drain in the area of the pelvis checked. Once again, the distal bowel looked i ntact. The area of the dissection looked intact with no bleeding at that moment. Then, I proceeded to put the omentum on top of the abdomen and then closed the fascia with #2 nylon in a running fashio n. Sponge counts and instrument counts were correct. After that, we proceeded to mature the colosto my. We brooked the colostomy by using first a 0 chromic at 12, 9, 6, and 3 o'clock that we used 0 ch romic, and in between, we put 3-0 chromic to finish maturing the colostomy. Area was irrigated. The ostomy looked intact. We make sure it does not twist and it shows a good capillary refill. Ostomy bag was in place. The midline was closed with wet-to-dry dressing previously. The patient tolerated the procedure well. Sponge counts and instrument counts were correct. The patient will be sent to recovery in stable condition and then to the ICU. HM/MODL Voice ID: [id number] Report ID: [id number]
[2022-04-06] MEDS: PIPER TAZO 3.375 GM in NA CHLORIDE 0.9% 100 ML IV SCH ×3 (00:23→16:38)
[2022-04-06] MEDS: MORPHINE 2 MG/ML SYR IV PRN (00:37)
[2022-04-06] MEDS: HYDROMORPHONE HCL 1 MG/ML INJ IV PRN ×5 (03:37→20:37)
[2022-04-06 04:49] LABS: Absolute Lymphocytes (CBC) 0.7 K/uL (0.7-4.9); Hematocrit 34.8 % (36.0-45.0); Lymphocytes % 3.4 % (15.3-44.8); MPV 7.6 fL (7.6-11.3); RBC Red Blood Cell Count 3.85 M/uL (3.86-4.86)
[2022-04-06 05:11] LABS: Magnesium 2.4 mg/dL (1.8-2.4); Phosphorus 1.7 mg/dL (2.5-4.9); Potassium 4.3 mmol/L (3.5-5.1)
[2022-04-06] MEDS: D5.45NS W/KCL 20MEQ 1,000 ML IV SCH ×2 (05:45→14:07)
[2022-04-06] MEDS ORDERED: ENOXAPARIN 40 MG/0.4 ML SQ SCH (09:00)
[2022-04-06] MEDS: PANTOPRAZOLE 40 MG INJ IVP SCH (09:01)
[2022-04-06] MEDS: ENOXAPARIN 40 MG/0.4 ML SQ SCH (09:01)
[2022-04-06] MEDS ORDERED: POTASSIUM PHOS IN 0.9 % NACL 15 MMOL/250 ML BAG IV ONE (09:24)
--- NOTE | 2022-04-06 10:06 | EKG ---
Test Date: 2022-04-05 Test Time: 04:35:46 Laboratory Immunologist: MANUELA MEASUREMENT RESULTS: Intervals: Rate: 125 WA: 148 QRSD: 92 QT: 306 QTc: 441 [place]: P: 52 WA: 148 QRS: 66 T: 42 INTERPRETIVE STATEMENTS: Sinus tachycardia Nonspecific ST abnormality Abnormal ECG Compared to ECG 11/03/2021 11:46:26 ST (T wave) deviation now present Sinus rhythm no longer present Electronically Signed On 04-06-22 10:02:45 CDT by Gilberto Bo
--- NOTE | 2022-04-06 23:39 | PN ---
Date of Progress Note: 04/06/2022 Diagnosis: Perforated diverticulitis, status post emergent laparotomy with creation of ostomy and si gmoid resection. Subjective: The patient is doing well. No complaint. NG tube is minimal and will be removed today. Thorpe will be removed too. She has no nausea, although she has no appetite. Objective: VITAL SIGNS: Reviewed. CHEST: Clear. ABDOMEN: Soft and depressible. Intact surgical site. Ostomy viable, although nonfunctional yet. EXTREMITIES: Good capillary refill. Laboratory Data: Blood work was reviewed. Plan: Check the electrolytes out of bed, ambulate, incentive spirometry. Discontinue NG tube. Disc ontinue Thorpe. Continue antibiotics. May move to floor, if okay with the primary doctor. QUEENIE/MICH Voice ID: [id number] Report ID: [id number]
[2022-04-07] MEDS: PIPER TAZO 3.375 GM in NA CHLORIDE 0.9% 100 ML IV SCH ×3 (01:30→16:39)
[2022-04-07] MEDS: HYDROMORPHONE HCL 1 MG/ML INJ IV PRN ×6 (02:42→21:47)
[2022-04-07] MEDS: D5.45NS W/KCL 20MEQ 1,000 ML IV SCH ×4 (02:48→22:08)
[2022-04-07 05:09] LABS: Magnesium 2.2 mg/dL (1.8-2.4); Phosphorus 2.1 mg/dL (2.5-4.9)
[2022-04-07] MEDS ORDERED: POTASSIUM PHOS IN 0.9 % NACL 15 MMOL/250 ML BAG IV ONE (07:30)
[2022-04-07] MEDS: PANTOPRAZOLE 40 MG INJ IVP SCH (08:10)
[2022-04-07] MEDS: ENOXAPARIN 40 MG/0.4 ML SQ SCH (08:10)
[2022-04-07 08:57] LABS: Potassium 4.1 mmol/L (3.5-5.1)
[2022-04-07 10:55] LABS: Absolute Lymphocytes (CBC) 1.9 K/uL (0.7-4.9); Hematocrit 33.1 % (36.0-45.0); Lymphocytes % 17.8 % (15.3-44.8); MPV 7.2 fL (7.6-11.3); RBC Red Blood Cell Count 3.69 M/uL (3.86-4.86)
--- NOTE | 2022-04-07 11:05 | P.PN ---
Date of Service: 04/06/22 Subjective Patient doing well with no new complaints. Clinical symptoms are improving. Surgical management per Dr. Davila Physical Examination - Vital Signs reviewed - Physical Exam General: Alert Respiratory: Normal air movement Cardiovascular: Regular rate/rhythm, Normal S1 S2 Gastrointestinal: Other (post op changes noted.), Distended Musculoskeletal: No swelling Neurological: Normal speech Assessment and Plan - Plan Perforated sigmoid diverticulitis: -Continue clear liquid diet per surgery Will continue colostomy care as per ostomy wound nurse. Will continue pain control with as needed morphine. Follow closely Empiric antibiotic with Zosyn to be continued. Prophylaxis: Lovenox and SCDs for DVT prophylaxis CODE STATUS: Full code Disposition: For possible discharge in the next 48-72. - Advance Directives Does patient have a Living Will: No Does patient have a Durable POA for Healthcare: No
[2022-04-07 11:08] LABS: Potassium 3.8 mmol/L (3.5-5.1)
--- NOTE | 2022-04-07 13:58 | P.PN ---
Date of Service: 04/07/22 Subjective Patient had a large amount of bleeding from the wound. Silver nitrate to cauterize. Surgery at bedside and help cauterize the bleeding. Bleeding has stopped and we will monitor H&H. Physical Examination - Vital Signs reviewed - Physical Exam General: Alert Respiratory: Normal air movement Cardiovascular: Regular rate/rhythm, Normal S1 S2 Gastrointestinal: Other (post op changes noted.), Distended; colostomy intact Musculoskeletal: No swelling Neurological: Normal speech Assessment and Plan - Plan Perforated sigmoid diverticulitis: Continue monitoring H&H; wound care Will continue colostomy care as per ostomy wound nurse. Will continue pain control with as needed morphine. Follow closely Empiric antibiotic with Zosyn to be continued. Prophylaxis: Lovenox and SCDs for DVT prophylaxis CODE STATUS: Full code Disposition: For possible discharge in the next 48-72. - Advance Directives Does patient have a Living Will: No Does patient have a Durable POA for Healthcare: No
[2022-04-07] MEDS ORDERED: SILVER NITRATE 1 APPL TOP ONE ×3 (18:00→19:00)
[2022-04-07 18:43] LABS: Absolute Lymphocytes (CBC) 2.3 K/uL (0.7-4.9); Hematocrit 33.9 % (36.0-45.0); Lymphocytes % 26.6 % (15.3-44.8); MPV 8.2 fL (7.6-11.3); RBC Red Blood Cell Count 3.74 M/uL (3.86-4.86)
[2022-04-07 18:47] LABS: Protime INR 1.12
[2022-04-07 18:55] LABS: Albumin 2.6 g/dL (3.4-5.0); Bilirubin Total 0.4 mg/dL (0.2-1.0); Potassium 3.9 mmol/L (3.5-5.1); Protein, Total 6.3 g/dL (6.4-8.2)
[2022-04-08] MEDS: PIPER TAZO 3.375 GM in NA CHLORIDE 0.9% 100 ML IV SCH ×3 (00:37→16:07)
[2022-04-08] MEDS: D5.45NS W/KCL 20MEQ 1,000 ML IV SCH ×3 (00:38→19:04)
[2022-04-08] MEDS: HYDROMORPHONE HCL 1 MG/ML INJ IV PRN ×7 (01:21→23:09)
[2022-04-08] MEDS ORDERED: PANTOPRAZOLE 40 MG INJ IVP ONE (03:52)
[2022-04-08] MEDS ORDERED: SODIUM CHLORIDE 0.9% 10ML INJ IV PRN (03:52)
[2022-04-08 05:31] LABS: Absolute Lymphocytes (CBC) 2.3 K/uL (0.7-4.9); Hematocrit 29.6 % (36.0-45.0); Lymphocytes % 28.7 % (15.3-44.8); RBC Red Blood Cell Count 3.27 M/uL (3.86-4.86)
[2022-04-08 05:37] LABS: Magnesium 1.8 mg/dL (1.8-2.4); Phosphorus 3.6 mg/dL (2.5-4.9); Potassium 3.8 mmol/L (3.5-5.1)
[2022-04-08] MEDS: ONDANSETRON 4 MG/2 ML VIAL IV PRN (05:48)
[2022-04-08] MEDS ORDERED: MAGNESIUM SULFATE 1 gm IVPB 1 GM/100 ML BAG IV ONE (06:05)
[2022-04-08] MEDS ORDERED: POTASSIUM CL SA 10 MEQ TAB PO ONE (06:05)
[2022-04-08] MEDS: MORPHINE 2 MG/ML SYR IV PRN (07:33)
[2022-04-08] MEDS: PANTOPRAZOLE 40 MG INJ IVP SCH (07:33)
--- NOTE | 2022-04-09 00:29 | PN ---
Date of Progress Note: 04/08/2022 Subjective: Mrs. Mendoza is a 61-year-old patient comes to us emergently with a surgical abdomen r igidity, pneumoperitoneum, and perforated viscus. The patient underwent an emergent laparotomy with bowel resection and ostomy. The patient is doing well. No complaint. Objective: Vital Signs: Stable. Skin: Yesterday was the first dressing changes that we did on her in the abdomen. We have to use so me silver nitrate to cauterize some capillary bleeding from the skin, but the fascia looks intact. N o infection present. Also, ostomy looks intact, viable. No gas yet. Bowel sounds are hypoactive. Chest: Clear. Extremities: Good capillary refill. Laboratory Data: Blood work shows WBC count of 8.0, came down from 26; hemoglobin of 10; platelets o f 276. INR is 1.12. Sodium is 136. Glucose 125. Plan: We are pending to transfer to the floor. Continue wet to dry dressing . I changed the dressings today and looked intact with no bleeding. Ostomy today once again looks intact, so we are going to encourage ambulation. Abdominal binder while out of bed. She is starting to feel some cramping and some bowel sounds, so hopefully the intestines will start to work soon, so we are going to notice when we have some gas in the ostomy. Whenever we see some gas in the ostomy, we can advanc e diet. Continue the antibiotics. SOWMYA drain is clear. QUEENIE/MODL Voice ID: [id number] Report ID: [id number]
[2022-04-09] MEDS: HYDROMORPHONE HCL 1 MG/ML INJ IV PRN ×9 (01:05→23:31)
[2022-04-09] MEDS: PIPER TAZO 3.375 GM in NA CHLORIDE 0.9% 100 ML IV SCH ×3 (01:07→16:26)
[2022-04-09 05:07] LABS: Absolute Lymphocytes (CBC) 2.1 K/uL (0.7-4.9); Hematocrit 28.8 % (36.0-45.0); Lymphocytes % 21.7 % (15.3-44.8); MPV 7.1 fL (7.6-11.3); RBC Red Blood Cell Count 3.26 M/uL (3.86-4.86)
[2022-04-09 05:15] LABS: Phosphorus 4.5 mg/dL (2.5-4.9)
[2022-04-09] MEDS: D5.45NS W/KCL 20MEQ 1,000 ML IV SCH ×3 (07:50→18:07)
[2022-04-09] MEDS: PANTOPRAZOLE 40 MG INJ IVP SCH (07:53)
--- NOTE | 2022-04-09 18:27 | PN ---
Date of Progress Note: 04/09/2022 Subjective: Status post perforated diverticulitis with ascites, pneumoperitoneum and peritonitis. T he patient had a bowel resection and ostomy placement with midline incision open. The patient is doi ng well. No complaint. She is still having some rumbling spasms, but no gas in the ostomy yet. She is tolerating liquid diet. She is ambulating. No fever. No shortness of breath. No chest pain. Physical Examination: Chest: Clear. Abdomen: Soft and depressible. Intact surgical sites. Ostomy viable. No gas yet. Some liquid pre sent. Extremities: Good capillary refill. Laboratory Data: Blood work reviewed. Plan: Continue ambulation. Whenever she starts passing gas in the ostomy, then we are going to adva nce diet. She is still requiring IV pain medication. We will continue with incentive spirometry. F patito explained to the patient and family, I will be out of town for the next few days and coming back on Wednesday, but Dr. Siddiqui will be covering for me and Dr. Hernandez will be the primary doctor. They fe el comfortable with that with. If she goes home before, I asked her to make sure we have a followup in my office. We are going to consult now the home health agency, so we are ready for discharge for wet-to-dry dressing. QUEENIE/MODL Voice ID: [id number] Report ID: [id number]
[2022-04-09] MEDS: ENSURE CLEAR 200 ML CAN PO SCH (20:48)
[2022-04-10] MEDS: PIPER TAZO 3.375 GM in NA CHLORIDE 0.9% 100 ML IV SCH ×3 (00:01→17:02)
[2022-04-10] MEDS: HYDROMORPHONE HCL 1 MG/ML INJ IV PRN ×8 (01:57→22:44)
[2022-04-10] MEDS: D5.45NS W/KCL 20MEQ 1,000 ML IV SCH ×2 (04:36→15:22)
[2022-04-10] MEDS: ENSURE CLEAR 200 ML CAN PO SCH ×2 (10:07→22:41)
[2022-04-10] MEDS: PANTOPRAZOLE 40 MG INJ IVP SCH (10:22)
[2022-04-11] MEDS: PIPER TAZO 3.375 GM in NA CHLORIDE 0.9% 100 ML IV SCH ×3 (00:55→16:49)
[2022-04-11] MEDS: HYDROMORPHONE HCL 1 MG/ML INJ IV PRN ×7 (01:09→23:52)
[2022-04-11] MEDS: D5.45NS W/KCL 20MEQ 1,000 ML IV SCH ×5 (04:51→23:56)
[2022-04-11] MEDS: ENSURE CLEAR 200 ML CAN PO SCH ×2 (09:47→22:44)
[2022-04-11] MEDS: PANTOPRAZOLE 40 MG INJ IVP SCH (09:48)
[2022-04-11] MEDS ORDERED: HYDROMORPHONE HCL 1 MG/ML INJ IV PRN (14:38)
[2022-04-12] MEDS: D5.45NS W/KCL 20MEQ 1,000 ML IV SCH ×4 (02:07→18:07)
[2022-04-12] MEDS: HYDROMORPHONE HCL 1 MG/ML INJ IV PRN ×4 (04:28→20:24)
[2022-04-12] MEDS: ENSURE CLEAR 200 ML CAN PO SCH ×2 (09:26→20:26)
[2022-04-12] MEDS: PANTOPRAZOLE 40 MG INJ IVP SCH (09:28)
[2022-04-12] MEDS: ONDANSETRON 4 MG/2 ML VIAL IV PRN (20:24)
--- NOTE | 2022-04-13 00:27 | P.PN ---
Date of Service: 04/12/22 Subjective Patient is doing well with no new complaints. She is passing gas and having bowel movement into her colostomy. Pain is better controlled. She is ambulating multiple laps around the nurse's station. She will be evaluated by General surgery and possible discharge in the morning. Physical Examination - Vital Signs reviewed - Physical Exam General: Alert Respiratory: Normal air movement Cardiovascular: Regular rate/rhythm, Normal S1 S2 Gastrointestinal: Midline incision; colostomy intact Musculoskeletal: No swelling Neurological: Normal speech Assessment and Plan - Plan Perforated sigmoid diverticulitis: Advanced diet as tolerated; patient has been educated on colostomy care and she is changing her own colostomy now. Continue with pain medication and she is still requiring IV pain medication. Probably change to oral pain medications prior prior to discharge Prophylaxis: Lovenox and SCDs for DVT prophylaxis CODE STATUS: Full code Disposition: For possible discharge in the next 24hrs - Advance Directives Does patient have a Living Will: No Does patient have a Durable POA for Healthcare: No
--- NOTE | 2022-04-13 00:28 | P.PN ---
Date of Service: 04/11/22 Subjective Patient is doing better. Minimal gas into the colostomy bag. Physical Examination - Vital Signs reviewed - Physical Exam General: Alert Respiratory: Normal air movement Cardiovascular: Regular rate/rhythm, Normal S1 S2 Gastrointestinal: Midline incision; colostomy intact Musculoskeletal: No swelling Neurological: Normal speech Assessment and Plan - Plan Perforated sigmoid diverticulitis: -Advanced diet as tolerated; -patient has been educated on colostomy care -Continue with pain medication -Prophylaxis: Lovenox and SCDs for DVT prophylaxis CODE STATUS: Full code Disposition: For possible discharge in the next 24hrs - Advance Directives Does patient have a Living Will: No Does patient have a Durable POA for Healthcare: No
--- NOTE | 2022-04-13 00:32 | P.PN ---
Date of Service: 04/10/22 Subjective Patient continues to improve. Bleeding has been minimal. Advancing diet Physical Examination - Vital Signs reviewed - Physical Exam General: Alert Respiratory: Normal air movement Cardiovascular: Regular rate/rhythm, Normal S1 S2 Gastrointestinal: Midline incision-C/D/I; colostomy intact Musculoskeletal: No swelling Neurological: Normal speech Assessment and Plan - Plan Perforated sigmoid diverticulitis: -H&H -Advanced diet as tolerated; -patient has been educated on colostomy care -Continue with pain medication -Prophylaxis: Lovenox and SCDs for DVT prophylaxis CODE STATUS: Full code Disposition: For possible discharge in the next 24hrs - Advance Directives Does patient have a Living Will: No Does patient have a Durable POA for Healthcare: No
--- NOTE | 2022-04-13 00:33 | P.PN ---
Date of Service: 04/09/22 Subjective No new changes; clinical symptoms are improving Physical Examination - Vital Signs reviewed - Physical Exam General: Alert Respiratory: Normal air movement Cardiovascular: Regular rate/rhythm, Normal S1 S2 Gastrointestinal: Midline incision-C/D/I; colostomy intact Musculoskeletal: No swelling Neurological: Normal speech Assessment and Plan - Plan Perforated sigmoid diverticulitis: -H&H stable -Advanced diet as tolerated; -patient has been educated on colostomy care -Continue with pain medication -Prophylaxis: Lovenox and SCDs for DVT prophylaxis CODE STATUS: Full code Disposition: For possible discharge in the next 24hrs - Advance Directives Does patient have a Living Will: No Does patient have a Durable POA for Healthcare: No
--- NOTE | 2022-04-13 00:35 | P.PN ---
Date of Service: 04/08/22 Subjective Transfer to general medical floor; clinically doing much better. Advancing diet as tolerated. Physical Examination - Vital Signs reviewed - Physical Exam General: Alert Respiratory: Normal air movement Cardiovascular: Regular rate/rhythm, Normal S1 S2 Gastrointestinal: Midline incision-C/D/I; colostomy intact Musculoskeletal: No swelling Neurological: Normal speech Assessment and Plan - Plan Perforated sigmoid diverticulitis: -H&H stable; repeat and monitor closely on the floor. -continue with physical therapy -Advanced diet as tolerated; -patient has been educated on colostomy care -Continue with pain medication -Prophylaxis: Lovenox and SCDs for DVT prophylaxis CODE STATUS: Full code Disposition: For possible discharge in the next 24hrs - Advance Directives Does patient have a Living Will: No Does patient have a Durable POA for Healthcare: No
[2022-04-13] MEDS: HYDROMORPHONE HCL 1 MG/ML INJ IV PRN ×2 (01:02→08:45)
[2022-04-13 06:18] LABS: Bicarbonate 27 mmol/L (21-32); Glomerular Filtration Rate 89 ml/min (=/>90); Glucose Level 99 mg/dL (74-106); Magnesium 2.1 mg/dL (1.8-2.4); Potassium 3.9 mmol/L (3.5-5.1); Sodium Level 138 mmol/L (136-145)
[2022-04-13 06:19] LABS: BUN Blood Urea Nitrogen < 3 mg/dL (7-18)
[2022-04-13 06:23] LABS: Absolute Lymphocytes (CBC) 1.9 K/uL (0.7-4.9); Hematocrit 26.4 % (36.0-45.0); Lymphocytes % 22.2 % (15.3-44.8); MPV 6.8 fL (7.6-11.3); RBC Red Blood Cell Count 2.96 M/uL (3.86-4.86)
[2022-04-13] MEDS: PANTOPRAZOLE 40 MG INJ IVP SCH (08:44)
[2022-04-13] MEDS: ENSURE CLEAR 200 ML CAN PO SCH ×2 (08:46→20:47)
[2022-04-13] MEDS: HYDROCODONE/APAP 10/325 TAB PO PRN ×2 (14:14→20:45)
--- NOTE | 2022-04-13 14:19 | PN ---
Date of Progress Note: 04/13/2022 Diagnoses: Rigid abdomen, pneumoperitoneum, perforated viscus, peritonitis, bowel perforation with a bscess, emergent laparotomy, colon resection and colostomy. Subjective: This is the case of a 61-year-old patient, came urgently with above diagnoses. The beau ent has been in the hospital since then. She is improving. There is no nausea. No vomiting. She i s still taking Dilaudid for pain. She states her pain medication by mouth has not worked for her yet . No nausea. No vomiting. Ostomy is functional. Objective: Chest: Clear. Abdomen: Intact surgical site. She is receiving wet-to-dry and midline ostomy is viable and functio nal. Bowel sounds positive. Extremities: Good capillary refill. Laboratory Data: Blood work shows WBC count of 8.6 and hemoglobin of 9.2. Potassium is 3.9. Assessment: See above. Plan: From the surgical standpoint, she is cleared to be discharged. Although, we had issue of her taking Dilaudid. I removed the SOWMYA drain today, hopefully that help will her in pain control. The SOWMYA was clear. We encouraged her once again to go to p.o. pain medication, but once again, she is not d oing that in purpose. She basically feels better that all the way, but she will try today p.o. pain medication. If that is the case and she gets better and she can control the pain with p.o. pain medi cation, then she will be able to go home with home health agencies, will need wet-to-dry to the midline and would need ostomy care. QUEENIE/MICH Voice ID: [id number] Report ID: [id number]
--- NOTE | 2022-04-13 15:31 | P.PN ---
Subjective Date of Service: 04/13/22 Chief Complaint: Rated intra-abdominal viscus, sepsis, intra-abdominal catastrophe. Subjective: No new changes (Complaint of uncontrollable pain symptoms today Evaluated by surgery, switch to p.o. pain medication) Physical Examination - Vital Signs Temperature: 97.5 F Blood Pressure: 115/67 Pulse: 79 Respirations: 14 Pulse Ox (%): 96 Assessment And Plan - Code Status/Comfort Care Code Status Assessed: Yes Code Status: Full Code Physician Review: Patient Assessed, Agree with Above Assessment and Plan Physician Review Additional Text: - Physical Exam General: Alert Respiratory: Normal air movement Cardiovascular: Regular rate/rhythm, Normal S1 S2 Gastrointestinal: Midline incision; colostomy intact Musculoskeletal: No swelling Neurological: Normal speech Assessment and Plan - Plan Perforated sigmoid diverticulitis: Patient is having issues with full liquid Continue full liquid today if still tolerating will advance to soft diet in the a.m. Follow-up with p.o. pain regimen now Continue wound care with wet-to-dry dressing for surgery Continues to make If controlled pain in a.m., follow-up plan for home health with Ostomy care change to oral pain medications prior to discharge Prophylaxis: Lovenox and SCDs for DVT prophylaxis
[2022-04-13] MEDS ORDERED: HYDROMORPHONE HCL 1 MG/ML INJ IV PRN (15:32)
[2022-04-14] MEDS: HYDROCODONE/APAP 10/325 TAB PO PRN ×2 (03:50→12:15)
[2022-04-14] MEDS: ENSURE CLEAR 200 ML CAN PO SCH (09:00)
[2022-04-14 09:48] VITALS: TEMP 97
[2022-04-14] MEDS: POLYETHYL GLY 3350 17 GM/DOSE PO ONE ×2 (10:01→10:30)
[2022-04-14] MEDS: PANTOPRAZOLE 40 MG INJ IVP SCH (10:30)
--- NOTE | 2022-04-14 11:13 | P.DS ---
Admission Date: 04/05/22 Discharge Date: 04/14/22 Disposition: ROUTINE DISCHARGE Discharge Condition: FAIR Reason for Admission: Rated intra-abdominal viscus, sepsis, intra-abdominal catastrophe. Brief History of Present Illness: Reason for admission: Rated intra-abdominal viscus, sepsis, intra-abdominal catastrophe. History of Present Illness: 61-year-old female patient was evaluated in the emergency room for episode of abdominal pain. She complains of pain for the past 2-day duration with associated nausea and vomiting. Pain is aggravated with coughing and movement and in the ED she had a CT abdomen pelvis done that revealed free air in the abdomen depicting perforated viscus. She was taken urgently to the OR for surgical intervention she was found to have a perforated sigmoid diverticulitis. She had operative intervention and colostomy formation. She is presently in the ICU for postoperative care. Allergies No Known Allergies Allergy (Verified 12/01/21 09:31) Home Medications: Ascorbic Acid [Vitamin C] 2,000 mg PO DAILY 12/01/21 Ascorbic Acid/Elderberry Fruit [Elderberry-Vit C 50-100 mg Chw] 1 each PO DAILY 12/01/21 Biotin 10,000 mcg PO DAILY 12/01/21 Cholecalciferol (Vitamin D3) [Vitamin D3] 3,000 unit PO DAILY 12/01/21 L.acidoph,Paracasei, B.lactis [Probiotic] 1 each PO DAILY 12/01/21 Lifitegrast [Xiidra] 1 each OP DAILY 12/01/21 Magnesium Oxide [Magnesium] 250 mg PO DAILY 12/01/21 [place]-3S/Dha/Epa/Fish Oil/D3 [De3 Dry Eye [place] Benefits Cap] 1 each PO BID 12/01/21 Trazodone HCl 100 mg PO BEDTIME 12/01/21 Turmeric Root/Uyen Root Ext [Turmeric Curcumin-Uyen Gummy] 1 each PO DAILY 12/01/21 Zinc 50 mg PO DAILY 12/01/21 Hospital Course: Hospital course Patient admitted with abdominal pain. CT findings of bowel perforation in setting of sigmoid diverticulitis. Patient underwent emergent laparotomy with sigmoid resection and creation of ostomy. Postop patient tolerated well. She did initially have anorexia with poor appetite but subsequently improved. She is tolerating p.o. better now. She is ambulating. She has some complain of constipation but improved with ambulation. She developed a new upper back rash which was felt to be presumed fungal dermatitis and started on nystatin at the time of discharge. She will continue ostomy care at home and follow-up with Dr. Davila in 1 week Physical Exam General: Alert, calm, middle-aged female Respiratory: Normal air movement Cardiovascular: Regular rate/rhythm, Normal S1 S2 Gastrointestinal: Midline incision; colostomy intact Musculoskeletal: No swelling, no pedal edema Integumentarymild follicular rash over upper back, no erythema Neurological: Normal speech Vital Signs/Physical Exam: Temp Pulse Resp BP Pulse Ox 97.0 F 74 14 109/55 L 95 04/14/22 08:00 04/14/22 08:00 04/14/22 08:00 04/14/22 08:00 04/14/22 08:00 Laboratory Data at Discharge: WBC 8.6 K/uL (4.3-10.9) 04/13/22 05:36 Hgb 9.2 g/dL (12.0-15.0) L 04/13/22 05:36 Hct 26.4 % (36.0-45.0) L 04/13/22 05:36 Plt Count 360 K/uL (152-406) 04/13/22 05:36 PT 12.3 SECONDS (9.5-12.5) 04/07/22 18:16 INR 1.12 04/07/22 18:16 APTT 32.5 SECONDS (24.3-36.9) 04/07/22 18:16 Sodium 138 mmol/L (136-145) 04/13/22 05:36 Potassium 3.9 mmol/L (3.5-5.1) 04/13/22 05:36 BUN < 3 mg/dL (7-18) L 04/13/22 05:36 Creatinine 0.76 mg/dL (0.55-1.3) 04/13/22 05:36 Glucose 99 mg/dL (74-106) 04/13/22 05:36 Phosphorus 4.5 mg/dL (2.5-4.9) 04/09/22 04:42 Magnesium 2.1 mg/dL (1.8-2.4) 04/13/22 05:36 Total Bilirubin 0.4 mg/dL (0.2-1.0) 04/07/22 18:16 AST 8 U/L (15-37) L 04/07/22 18:16 ALT 34 U/L (12-78) 04/07/22 18:16 Alkaline Phosphatase 103 U/L (45-117) 04/07/22 18:16 Lipase 85 U/L (73-393) 04/05/22 03:42 Home Medications: Ascorbic Acid [Vitamin C] 2,000 mg PO DAILY 12/01/21 Biotin 10,000 mcg PO DAILY 12/01/21 Cholecalciferol (Vitamin D3) [Vitamin D3] 3,000 unit PO DAILY 12/01/21 L.acidoph,Paracasei, B.lactis [Probiotic] 1 each PO DAILY 12/01/21 Lifitegrast [Xiidra] 1 each OP DAILY 12/01/21 Magnesium Oxide [Magnesium] 250 mg PO DAILY 12/01/21 [place]-3S/Dha/Epa/Fish Oil/D3 [De3 Dry Eye [place] Benefits Cap] 1 each PO BID 12/01/21 Trazodone HCl 100 mg PO BEDTIME 12/01/21 Turmeric Root/Uyen Root Ext [Turmeric Curcumin-Uyen Gummy] 1 each PO DAILY 12/01/21 Zinc 50 mg PO DAILY 12/01/21 Nystatin Cream [Mycostatin 100MU/Gm Cream*] 1 appl TOP BID #1 tube 04/14/22 New Medications: Nystatin Cream [Mycostatin 100MU/Gm Cream*] 1 appl TOP BID #1 tube Diet: Regular Activity: Ad sandy Followup: Leslee Jackson NP [Primary Care Provider] - Ricco Davila MD [ACTIVE - CAN ADMIT] - 1 Week Time spent managing pt's care (in minutes): 35
[2022-04-14 14:27] VITALS: BP 115/54
[2022-04-14 20:54] VITALS: O2SAT 99
[2022-04-14] MEDS ORDERED: NYSTATIN 100MU/GM CREAM 15GM TOP SCH (21:00)
--- NOTE | 2022-04-27 12:13 | RAD REPORT ---
CLINICAL HISTORY: Abdominal pain, acute, nonlocalized COMPARISON: None. TECHNIQUE: CT ABDOMEN PELVIS WITH IV CONTRAST on 04/05/2022 2:57 AM CDT This exam was performed according to our departmental dose-optimization program, which includes automated exposure control, adjustment of the mA and/or kV according to patient size and/or use of iterative reconstruction technique. FINDINGS: Lower lungs are clear. Abdomen: Liver is mildly fatty in attenuation. There is no biliary dilatation. There are multiple gallstones in the gallbladder. The pancreas and spleen are normal in appearance. Adrenal glands are normal. Kidneys are mildly atrophic. There is a 5 mm upper pole left renal calculus. Abdominal aorta is normal in course and caliber without aneurysm. There is small to moderate amount of free air in the upper quadrants. There is no retroperitoneal adenopathy. Pelvis: There are multiple fluid-filled, dilated and occasionally mildly thickened small bowel loops throughout the abdomen. Most severe thickening of small bowel segments in the left lateral abdomen. Terminal ileum is decompressed. Urinary bladder is unremarkable. There is no free fluid. Skeleton: There are no acute osseous findings. No suspicious bony lesions. IMPRESSION: Developing small bowel obstruction, with transition point likely in the distal ileum. Pneumoperitoneum. Electronically signed by: Justice Estrada MD 04/05/2022 6:18 AM CDT Workstation: Due to temporary technical issues with the PACS/Fluency reporting system, reports are being signed by the in house radiologist without review as a courtesy to ensure prompt reporting. The interpreting radiologist is fully responsible for the content of the report.
== END 2022-04-14 17:08 | disposition home health service (06) | DRG 329 ==
LOC: ER 00:52 → ERHOLD 07:54 → UNDOADMIN 07:54 → ERHOLD 10:07 → 3RD-ICU 13:14 → 2ND 04-08 20:14
PROVIDERS: ADMIT Hospitalist; ATTEND Internal Medicine
PROC: 0D1M0Z4 Bypass Descending Colon to Cutaneous, Open Approach (ICD-10-PCS; 2022-04-05)
PROC: 0DTN0ZZ Resection of Sigmoid Colon, Open Approach (ICD-10-PCS; principal; 2022-04-05 08:00)
DX: K57.20 Diverticulitis of large intestine with perforation and abscess without bleeding (principal); K65.9 Peritonitis, unspecified; E43 Unspecified severe protein-calorie malnutrition; K59.00 Constipation, unspecified; B36.8 Other specified superficial mycoses; Z68.28 Body mass index [BMI] 28.0-28.9, adult; Z20.822 Contact with and (suspected) exposure to COVID-19
CPT/HCPCS: 36415; 74018; 74177; 80048; 80053; 81003; 81015; 82947; 83605; 83690; 83735; 84100; 85025; 85610; 85730; 86850; 86900; 86901; 87040; 88304; 88307; 93005; 94010; 96365; 96375; 97116; 97161; 97530; 99251; 99285; C9113; J0330; J1100; J1170; J1650; J2270; J2405; J2543; J2704; J3010; J3475; J7120; Q9967; U0003